=== PATIENT | male | born 1950 | race Caucasian/White ===

== ENCOUNTER → 2018-11-22 | Outpatient (CLI) | payer MEDICARE ==
--- NOTE | 2018-11-22 17:35 | MR ---
EXAMINATION TYPE: MR shoulder RT wo con DATE OF EXAM: 11/22/2018 COMPARISON: None HISTORY: right shoulder pain, history of surgical repair TECHNIQUE: Multiplanar, multisequence imaging of the right shoulder is performed without contrast. FINDINGS: Rotator Cuff: There is a low grade partial-thickness 0.9 x 0.5 cm bursal surface tear of the anterior fibers of the distal supraspinatus tendon. There is moderate associated tendinopathy and bursal surf nash fiber fraying with additional insertional fiber articular surface 3 mm tear. As described below t here is internal impingement on the supraspinatus myotendinous junction. Venous varicosity is seen ne ar the conjoined tendon. Surgical sutures are not well seen on MR. There is mild tendinosis of the infraspinatus as there is slight signal alteration of the insertional fibers. Teres minor and subscapularis are unremarkable in signal and muscle volume. Acromioclavicular Joint: There is downsloping of acromion and moderate acromioclavicular arthropathy with inferior projecting osteophytes placing impression upon the supraspinatus tendon with alteration in signal subsequently of the supraspinatus myotendinous junction (internal impingement). Glenohumeral Joint: Small marginal osteophytes of the glenohumeral joint and mild joint space narrowi ng with chondral irregularity. Labrum: The labrum appears grossly intact given limitation of non-arthrogram study. Biceps Tendon: The long head of biceps is in normal location within bicipital groove. However the int ra-articular portion of the biceps tendon near its insertion on the biceps anchor is not well delinea oma likely secondary to severe tendinosis. Bone marrow signal: No focal abnormal marrow signal is appreciated. Other: A very small amount of fluid is seen within the subcoracoid bursa. IMPRESSION: 1. Low-grade partial-thickness bursal surface tear of the supraspinatus tendon measuring 0.9 x 0.5 cm superimposed upon moderate tendinopathy. Additional 3 mm anterior insertional fiber articular surfac e tear is seen. 2. Moderate acromioclavicular arthropathy with downsloping of the acromion creating internal impingem ent of the supraspinatus and alteration in signal of the myotendinous junction. 3. Mild infraspinatus tendinopathy. 4. Poor visualization of the intra-articular portion of the long head of the biceps tendon likely rel ated to severe tendinopathy. 5. Mild glenohumeral arthropathy.
== END | disposition home or self-care (01) ==
LOC: RADMRIMAIN 07:34
PROVIDERS: ATTEND Pediatrics
DX: M75.111 Incomplete rotator cuff tear or rupture of right shoulder, not specified as traumatic (principal); M75.41 Impingement syndrome of right shoulder; M19.011 Primary osteoarthritis, right shoulder; M75.91 Shoulder lesion, unspecified, right shoulder

== ENCOUNTER → 2018-12-02 | Outpatient (CLI) | payer MEDICARE, OTHER ==
[2018-12-02 07:50] LABS: Blood Urea Nitrogen 18 mg/dL (9-20)
--- NOTE | 2018-12-02 10:43 | CT ---
EXAMINATION TYPE: CT abdomen pelvis wo/w con DATE OF EXAM: 12/02/2018 COMPARISON: NONE HISTORY: 68-year-old male Groin pain, Abdominal pain TECHNIQUE: Contiguous axial scanning of the abdomen and pelvis before and after administration of 100 ml Isovue 300 IV contrast. Delayed images through the kidneys and coronal/sagittal reconstructions performed. CT DLP: 1719 mGycm Automated exposure control for dose reduction was used. FINDINGS: Aortic root is ectatic at 3.8 cm. Heart normal size without pericardial effusion. Strandy atelectasis lung bases. No pleural effusion. Arterial phase imaging of the liver shows nonspecific subcentimeter hypodensity right liver lobe too small for accurate CT characterization, probable tiny cyst. No other focal lesion is seen. Portal vero ous system is patent. No biliary ductal dilatation. Gallbladder, adrenal glands, spleen, appear within normal limits. 8 mm hypodense lesion anterior pancreatic body, axial image 30. 3 nonobstructive right renal calculi measuring up to 9 mm. Subcentimeter hypodensity lateral left kidney too small fractured CT characterization, probable cyst. 4 nonobstructive left renal calculi measuring up to 4 mm. Symmetric uptake and excretion of contrast from both kidneys. No hydronephrosis. No dilated small bowel, free fluid, or free air. Mild circumferential wall thickening of multiple lef t-sided jejunal loops may be due to nondistention. No mesenteric or retroperitoneal lymphadenopathy. Normal appendix. Oral contrast progressed to the mid transverse colon. Moderate stool in the left anjum e of the colon with sigmoid diverticulosis. No pericolonic inflammatory change. Bladder urine distended. Prostate gland measures 5.0 cm wide. No abnormal fluid collection in the pel vis or pelvic lymphadenopathy. Bones: Mild degenerative changes at the hips and SI joints. Additional mild multilevel degenerative c hanges in the lumbar spine. IMPRESSION: 1. BILATERAL NONOBSTRUCTIVE RENAL CALCULI MEASURING UP TO 9 MM ON THE RIGHT AND 4 MM ON THE LEFT. NO HYDRONEPHROSIS. 2. AN 8 MM HYPODENSE, PROBABLY CYSTIC LESION ANTERIOR PANCREATIC BODY. A single follow-up in 1 year, preferably with MRI is recommended for an incidental lesion of this size. 3. Mild circumference wall thickening of multiple left-sided jejunal loops may be due to nondistentio n. Correlate for any symptoms of a mild nonspecific enteritis. 4. Moderate stool in the distal colon with sigmoid diverticulosis. Prostatomegaly (5.0 cm wide).
== END | disposition home or self-care (01) ==
LOC: RADCTMAIN 06:58
PROVIDERS: ATTEND Pediatrics
DX: N20.0 Calculus of kidney (principal); K57.30 Diverticulosis of large intestine without perforation or abscess without bleeding; N40.0 Benign prostatic hyperplasia without lower urinary tract symptoms; R19.5 Other fecal abnormalities; K63.89 Other specified diseases of intestine
CPT/HCPCS: 82565; 84520; 74178; 36415; Q9967

== ENCOUNTER → 2019-11-09 | Day surgery (SDC) | payer MEDICARE, OTHER ==
[2019-11-04 10:21] VITALS: BMI 22.8
[~2019-11-09] MED LIST: SODIUM CHLORIDE 0.9% 1,000 ML IV SCH
[2019-11-09 12:38] VITALS: BP 126/73; PULSE 72; RESP 18; TEMP 97.9
--- NOTE | 2019-11-10 14:29 | P.PCN ---
Preoperative Diagnosis: Diagnosis Recurrent presyncope Twelve-lead ECG shows sinus rhythm normal [place] narrow QRS no delta waves no epsilon waves normal ST segments Tilt table test per protocol Baseline blood pressure 129/73 mmHg, Baseline heart is 61 beats a minute Patient was tilted upright at night was 70 per protocol Elevated blood pressure readings noted. Eyes blood pressure 164/86 mmHg, pulse rate in the 70s and 80s No syncope No evidence for neurocardiogenic syncope Impression Normal heart rate and blood pressure response to upright tilting without any evidence for neurocardiogenic syncope. Normal twelve-lead ECG
== END ==
LOC: CATHEP 12:18
PROVIDERS: ATTEND Internal Medicine Clinical Cardiac Electrophysiology
DX: R55 Syncope and collapse (principal)
CPT/HCPCS: 93660

== ENCOUNTER → 2019-11-26 | Outpatient (CLI) | payer MEDICARE, OTHER ==
--- NOTE | 2019-11-26 09:44 | CT ---
EXAMINATION TYPE: CT chest wo/w con DATE OF EXAM: 11/26/2019 COMPARISON: Chest x-ray August 16, 2016. CT abdomen and pelvis December 02, 2018. HISTORY: Solitary pulmonary nodule CT DLP: 479.9 mGycm. Automated Exposure Control for Dose Reduction was Utilized. TECHNIQUE: CT scan of the thorax is performed following without and with IV Contrast, patient inject ed with 100 mL of Isovue 300. FINDINGS: LUNGS: Mild underlying emphysematous changes thought present. There is anterior mild bibasilar linear scarring and left basilar posterior linear scarring and/or atelectasis. No suspicious new greater th an 5 mm pulmonary nodules or masses. There is 5 mm right lower lobe nodule image 45 unchanged from [facility] 2018 CT abdomen and pelvis study. No suspicious focal consolidation. No pleural effusion or p neumothorax noted bilaterally. Tracheobronchial tree is patent. MEDIASTINUM: There are no greater than 1 cm hilar or mediastinal lymph nodes. No cardiomegaly or pe ricardial effusion is seen. Mild coronary artery catheterization proximal LAD, noted marker for under lying coronary artery disease. OTHER: Subcentimeter hypodense lesion right hepatic lobectomy 56 to small to further characterize pre sumed benign. Partial visualization of multiple right greater than left bilateral nonobstructing nikky l calculi which correlates with CT abdomen one year earlier. Slight underlying scoliotic curvature wi th mild multilevel spurring. IMPRESSION: Mild emphysematous change without acute pulmonary process. Stable 5 mm right lower lobe n odule from 1 year earlier presumed benign. No further follow-up necessary per modified [employer] recommendations.
== END | disposition home or self-care (01) ==
LOC: RADCTMAIN 07:50
PROVIDERS: ATTEND Pediatrics
DX: J43.9 Emphysema, unspecified (principal); R91.1 Solitary pulmonary nodule
CPT/HCPCS: 71270; Q9967